=== PATIENT | male | born 1950 | race Caucasian/White ===

== ENCOUNTER 2017-04-08 11:24 | Outpatient (CLI) | payer MEDICARE ==
--- NOTE | 2017-04-08 13:39 | XRAY Report ---
THREE-VIEW RIGHT KNEE: 04/08/2017 CLINICAL INDICATION: Pain. FINDINGS: Frontal, lateral, sunrise views of the right knee demonstrate minimal osteoarthritis, with tiny marginal osteophytes. There is no evidence of fracture or dislocation. No effusion is present . IMPRESSION: MINIMAL OSTEOARTHRITIS. JOB #: [id number] EXT JOB #:[id number]
--- NOTE | 2017-04-08 13:40 | XRAY Report ---
RIGHT HIP AND PELVIS: 04/08/2017 CLINICAL INDICATION: Chronic right hip pain. FINDINGS: Frontal view of the hips and pelvis and frogleg lateral view of the right hip demonstrate mild osteoarthritis. There is no evidence of fracture or dislocation. Left femoral IM maddie is incide ntally noted. IMPRESSION: MILD RIGHT HIP OSTEOARTHRITIS. JOB #: [id number] EXT JOB #:[id number]
== END 2017-04-08 11:25 | disposition home or self-care (01) ==
LOC: DI.S 11:24
PROVIDERS: ATTEND Family Medicine
DX: M17.11 Unilateral primary osteoarthritis, right knee (principal); M16.11 Unilateral primary osteoarthritis, right hip